=== PATIENT | female | born 1975 | race African-American/Black ===

== ENCOUNTER → 2022-06-26 | Outpatient (CLI) | payer OTHER | LOC: M RAD 10:36 | PROVIDERS: ATTEND Orthopaedic Surgery | DX: R22.41 Localized swelling, mass and lump, right lower limb (principal) ==

== ENCOUNTER → 2024-07-06 | Outpatient (REF) | LOC: M PLAIMG 12:30 | PROVIDERS: ATTEND Internal Medicine | DX: M54.50 Low back pain, unspecified (principal); M25.511 Pain in right shoulder; M47.816 Spondylosis without myelopathy or radiculopathy, lumbar region ==

== ENCOUNTER 2024-07-11 15:52 | Emergency (ER) | payer OTHER ==
[~2024-07-11] VITALS: Ht 165.1 cm; Wt 69.4 kg
[2024-07-11 15:56] VITALS: BP 155/83; TEMP 98.7; O2SAT 100
[2024-07-11] MEDS ORDERED: TIZA10TA (16:34)
[2024-07-11] MEDS ORDERED: IBUP80TA (16:34)
== END 2024-07-11 20:30 | disposition left against medical advice (07) ==
LOC: M ED 15:52
DX: Z53.21 Procedure and treatment not carried out due to patient leaving prior to being seen by health care provider (principal)